=== PATIENT | female | born 1940 | race Caucasian/White ===

== ENCOUNTER 2018-05-29 09:37 | Observation (INO) | payer MEDICARE ==
[2018-05-29 10:42] LABS: BASO % 0.8 % (0.0-2.0); EOS # 0.2 K/uL (0.0-0.7); EOS % 3.4 % (0.0-4.0); HEMOGLOBIN 10.7 g/dL (11.0-16.0); LYMPH # 1.5 K/uL (1.0-4.3); LYMPH % 24.9 % (20.0-40.0); MEAN CELL VOLUME 88.2 fL (81.0-99.0); MEAN CORPUSCULAR HEMOGLOBIN 29.3 pg (27.0-31.0); MEAN CORPUSCULAR HGB CONC 33.2 g/dL (33.0-37.0); MEAN PLATELET VOLUME 8.5 fL (7.2-11.7); MONO # 0.6 K/uL (0.0-0.8); MONO % 10.3 % (0.0-10.0); NEUT # 3.6 K/uL (1.8-7.0); NEUT % 60.6 % (50.0-75.0); RBC 3.67 Mil/uL (3.80-5.20); RED CELL DISTRIBUTION WIDTH 14.1 % (11.5-14.5); WHITE BLOOD COUNT 5.9 K/uL (4.8-10.8)
--- NOTE | 2018-05-29 10:47 | C.PDOC ---
History Of Present Illness 77-year-old female presents to the emergency department with complaints of left sided chest pain that started at 02:00 this morning. Pain is described as pressure and is non-radiating; pain lasted approx lasted one hour, and improved by 03:00. Patient still feels some discomfort on her chest now. She denies nausea/vomiting, fever/chills, cough, SOB, abdominal pain, leg swelling, or any other associated symptoms. PMHx of HTN, hyperlipidemia, asthma Time Seen by Provider: 05/29/18 09:42 Chief Complaint (Nursing): Chest Pain History Per: Patient History/Exam Limitations: no limitations Onset/Duration Of Symptoms: Days Current Symptoms Are (Timing): Better Severity: Mild Quality: "Pain" Past Medical History Reviewed: Historical Data, Nursing Documentation, Vital Signs Vital Signs: Last Vital Signs Temp 98.5 F 05/29/18 15:55 Pulse 76 05/29/18 16:37 Resp 18 05/29/18 15:55 BP 135/72 05/29/18 15:55 Pulse Ox 98 05/29/18 16:37 - Medical History PMH: Asthma, HTN, Hypercholesterolemia Surgical History: Cholecystectomy Denies: Pacemaker - [facility] Procedures LAPAROSCOPIC CHOLECYSTECTOMY (10/08/14) TETANUS TOXOID ADMINIST (01/17/15) THORACENTESIS (10/08/14) Family History: States: No Known Family Hx - Social History Hx Tobacco Use: No Hx Alcohol Use: No Hx Substance Use: No - Immunization History Hx Tetanus Toxoid Vaccination: No Hx Influenza Vaccination: Yes Hx Pneumococcal Vaccination: No Review Of Systems Constitutional: Negative for: Fever, Chills Cardiovascular: Positive for: Chest Pain. Negative for: Palpitations, Light Headedness Respiratory: Negative for: Cough, Shortness of Breath, Pleuritic Pain Gastrointestinal: Negative for: Nausea, Vomiting, Abdominal Pain Musculoskeletal: Negative for: Arm Pain Neurological: Negative for: Weakness, Numbness, Headache, Dizziness Physical Exam - Physical Exam Appears: Well, Non-toxic, No Acute Distress, Other (speaking in full sentences) Skin: Normal Color, Warm, Dry, No Rash Eye(s): bilateral: Normal Inspection Oral Mucosa: Moist Neck: Normal, Normal ROM Cardiovascular: Rhythm Regular Respiratory: Normal Breath Sounds, No Rales, No Rhonchi, No Wheezing Gastrointestinal/Abdominal: Normal Exam, Bowel Sounds, Soft, No Tenderness Extremity: Pedal Edema (trace, pitting edema B/L LEs), No Calf Tenderness, No Deformity, No Swelling Pulses: Left Dorsalis Pedis: Normal, Right Dorsalis Pedis: Normal Neurological/Psych: Oriented x3 ED Course And Treatment - Laboratory Results Result Diagrams: 05/29/18 10:38 05/29/18 10:38 ECG: Interpreted By Me, Viewed By Me ECG Rhythm: Sinus Rhythm ECG Interpretation: Normal Interpretation Of ECG: Normal axis. No acute ST/T wave changes Rate From EC (bpm) O2 Sat by Pulse Oximetry: 98 (RA) Pulse Ox Interpretation: Normal - Radiology CXR: Interpreted by Me, Viewed By Me CXR Interpretation: Yes: No Acute Disease. No: Infiltrates Progress Note: EKG, Bloodwork and Chest X-Ray ordered and reviewed. Patient reports ASA allergy - PO Plavix given. - Physician Consult Information Physician Contacted: Shantel Garcia Outcome Of Conversation: Discussed patient with hospitalist, agrees with obs telemetry for chest pain r/o ACS. Disposition - Disposition Disposition: HOSPITALIZED Disposition Time: 11:38 Condition: STABLE - Clinical Impression Clinical Impression: Chest pain - Scribe Statement The provider has reviewed the documentation as recorded by the Scribe (Aruna Gardiner) Provider Attestation: All medical record entries made by the Scribe were at my direction and personally dictated by me. I have reviewed the chart and agree that the record accurately reflects my personal performance of the history, physical exam, medical decision making, and the department course for this patient. I have also personally directed, reviewed, and agree with the discharge instructions and disposition. Decision To Admit - Pt Status Changed To: Hospital Disposition Of: Observation - . Bed Request Type: Telemetry Admitting Physician: Shantel Garcia Patient Diagnosis: Chest pain
[2018-05-29 10:53] LABS: PROTHROMBIN TIME 11.1 SECONDS (9.7-12.2)
[2018-05-29 10:57] LABS: GFR AFRICAN-AMERICAN > 60; GFR NON-AFRICAN AMERICAN > 60
[2018-05-29 10:58] LABS: CALCIUM 8.4 mg/dl (8.6-10.4)
[2018-05-29 10:59] LABS: ALB/GLOB RATIO 1.1 (1.0-2.1); ALBUMIN 3.8 g/dL (3.5-5.0); ALT/SGPT 29 U/L (9-52); AST/SGOT 37 U/L (14-36); BLOOD UREA NITROGEN 19 mg/dL (7-17)
[2018-05-29 11:10] LABS: CK-MB 0.87 ng/mL (0.0-3.38)
--- NOTE | 2018-05-29 12:31 | CP.PCM.HP ---
History of Present Illness - History of Present Illness History of Present Illness: CC: chest pain Patient is a 77F with PMHx of HTN, HLD, and sciatica who presents for chest pain. Patient woke up at 2am with strong chest pain on the left side which lasted for 1 hour. Patient to a Meloxicam 7.5 mg which she said helped and she was able to fall back asleep. Patient has no pain today. Patient did not want to come to the ER, but her daughter convinced her to. Patient took the bus here and walked and said she had no pain with walking or shortness of breath. Patient denies palpitation. Patient denies abdominal pain, nausea, vomiting, constipation, or diarrhea. PMD: Dr. Stone Allergies: NKDA PMHx: HTN, HLD, Sciatica Psurg: cholecystectomy 2014, L knee surgery 2011, c - section Famhx: none, no history of CAD or OK Social: denies tobacco, alcohol, drugs Present on Admission - Present on Admission Any Indicators Present on Admission: No History of DVT/PE: No History of Uncontrolled Diabetes: No Urinary Catheter: No Decubitus Ulcer Present: No Review of Systems - Constitutional Constitutional: absent: Anorexia, Chills - EENT Eyes: absent: Blurred Vision, Change in Vision Nose/Mouth/Throat: absent: Nasal Congestion - Cardiovascular Cardiovascular: Chest Pain. absent: Dyspnea - Respiratory Respiratory: absent: Cough, Dyspnea, Wheezing - Gastrointestinal Gastrointestinal: absent: Abdominal Pain, Constipation, Diarrhea, Heartburn, Nausea, Vomiting - Genitourinary Genitourinary: absent: Dysuria, Hematuria - Musculoskeletal Musculoskeletal: absent: Numbness, Tingling - Integumentary Integumentary: absent: Rash Past Patient History - Infectious Disease Hx of Infectious Diseases: None - Past Medical History & Family History Past Medical History?: Yes - Past Social History Smoking Status: Never Smoked - CARDIAC Hx Hypercholesterolemia: Yes Hx Hypertension: Yes Hx Pacemaker: No - PULMONARY Hx Asthma: Yes - NEUROLOGICAL Hx Dementia: No Hx Parkinson's Disease: No Hx Seizures: No Hx Transient Ischemic Attacks (TIA): No - HEENT Hx HEENT Problems: No Hx Blind: No - RENAL Hx Chronic Kidney Disease: No - ENDOCRINE/METABOLIC Hx Endocrine Disorders: No - HEMATOLOGICAL/ONCOLOGICAL Hx Blood Disorders: No - INTEGUMENTARY Hx Dermatological Problems: No - MUSCULOSKELETAL/RHEUMATOLOGICAL Hx Musculoskeletal Disorders: No Hx Falls: Yes (due to knee surgery 5 yrs ago) - GASTROINTESTINAL Hx Gastrointestinal Disorders: Yes Hx Bowel Surgery: No Hx Ulcer: Yes Other/Comment: nausea and vomitting and abdominal pain - GENITOURINARY/GYNECOLOGICAL Hx Genitourinary Disorders: No - PSYCHIATRIC Hx Substance Use: No - SURGICAL HISTORY Hx Cholecystectomy: Yes - ANESTHESIA Hx Anesthesia: Yes Hx Anesthesia Reactions: No Meds Allergies/Adverse Reactions: Allergies Allergy/AdvReac Type Severity Reaction Status Date / Time No Known Allergies Allergy Verified 05/29/18 13:18 Physical Exam - Constitutional Appears: Non-toxic, No Acute Distress - Head Exam Head Exam: ATRAUMATIC, NORMAL INSPECTION, NORMOCEPHALIC - Eye Exam Eye Exam: EOMI, Normal appearance - ENT Exam ENT Exam: Mucous Membranes Moist - Respiratory Exam Respiratory Exam: Clear to Auscultation Bilateral, NORMAL BREATHING PATTERN. absent: Rales, Rhonchi, Wheezes, Respiratory Distress, Stridor - Cardiovascular Exam Cardiovascular Exam: REGULAR RHYTHM, RRR, +S1, +S2 - GI/Abdominal Exam GI & Abdominal Exam: Normal Bowel Sounds, Soft. absent: Distended, Firm, Tenderness - Extremities Exam Extremities exam: Positive for: normal inspection. Negative for: tenderness - Back Exam Back exam: NORMAL INSPECTION - Neurological Exam Neurological exam: Alert, Oriented x3 - Psychiatric Exam Psychiatric exam: Normal Affect, Normal Mood - Skin Skin Exam: Intact, Normal Color, Warm Results - Vital Signs Recent Vital Signs: Last Vital Signs Temp 98.9 F 05/29/18 09:54 Pulse 68 05/29/18 12:27 Resp 14 05/29/18 12:27 BP 149/77 05/29/18 12:27 Pulse Ox 98 05/29/18 12:27 - Labs Result Diagrams: 05/29/18 10:38 05/29/18 10:38 Labs: Laboratory Results - last 24 hr 05/29/18 05/29/18 05/29/18 10:38 10:38 10:38 WBC 5.9 RBC 3.67 L Hgb 10.7 L Hct 32.4 L MCV 88.2 D MCH 29.3 MCHC 33.2 RDW 14.1 Plt Count 189 MPV 8.5 Neut % (Auto) 60.6 Lymph % (Auto) 24.9 [place] % (Auto) 10.3 H Eos % (Auto) 3.4 Baso % (Auto) 0.8 Neut # (Auto) 3.6 Lymph # (Auto) 1.5 [place] # (Auto) 0.6 Eos # (Auto) 0.2 Baso # (Auto) 0.0 PT 11.1 INR 1.0 APTT 33 Sodium 142 Potassium 4.6 Chloride 106 Carbon Dioxide 27 Anion Gap 13 BUN 19 H Creatinine 0.7 Est GFR ( Amer) > 60 Est GFR (Non-Af Amer) > 60 POC Glucose (mg/dL) Random Glucose 91 Calcium 8.4 L Total Bilirubin 0.7 AST 37 H ALT 29 Alkaline Phosphatase 51 Total Creatine Kinase 183 H CK-MB (Mass) 0.87 Troponin I < 0.0120 Total Protein 7.3 Albumin 3.8 Globulin 3.5 Albumin/Globulin Ratio 1.1 05/29/18 11:24 WBC RBC Hgb Hct MCV MCH MCHC RDW Plt Count MPV Neut % (Auto) Lymph % (Auto) [place] % (Auto) Eos % (Auto) Baso % (Auto) Neut # (Auto) Lymph # (Auto) [place] # (Auto) Eos # (Auto) Baso # (Auto) PT INR APTT Sodium Potassium Chloride Carbon Dioxide Anion Gap BUN Creatinine Est GFR ( Amer) Est GFR (Non-Af Amer) POC Glucose (mg/dL) 72 Random Glucose Calcium Total Bilirubin AST ALT Alkaline Phosphatase Total Creatine Kinase CK-MB (Mass) Troponin I Total Protein Albumin Globulin Albumin/Globulin Ratio Assessment & Plan - Assessment and Plan (Free Text) Assessment: Chest pain r/o ACS Troponin I negative, EKG NSR f/u ROMIs x 2 with ekgs x 2 Plavix given in ER because was thought that patient is allergic to Aspirin which she is not Dr. Canales consulted, help appreciated ASA 81mg po daily HTN Losartan 100 mg po daily HCTZ 12.5 mg po daily f/u HgA1c, TSH, free T4 HLD Crestor 5mg po HS f/u lipid panel Prophylaxis SCDs Heparin 5000u sc q8h Heart healthy diet
--- NOTE | 2018-05-29 13:19 | RAD ---
PROCEDURE: CHEST RADIOGRAPH, 1 VIEW HISTORY: CP COMPARISON: Comparison chest dated 10/18/2016 FINDINGS: LUNGS: Bibasilar atelectasis right greater than left. Small calcified granuloma left lung apex again noted. PLEURA: No pneumothorax or pleural fluid seen. CARDIOVASCULAR: Normal. OSSEOUS STRUCTURES: No significant abnormalities. VISUALIZED UPPER ABDOMEN: Normal. OTHER FINDINGS: None. IMPRESSION: Bibasilar atelectasis right greater than left. Small calcified granuloma left lung apex again noted.
[2018-05-29 16:36] VITALS: O2SAT 98
[2018-05-29 16:36] LABS: CK-MB 0.83 ng/mL (0.0-3.38)
[2018-05-29 22:44] LABS: CK-MB 0.83 ng/mL (0.0-3.38)
--- NOTE | 2018-05-29 23:51 | CP.PCM.CON ---
Past Patient History - Infectious Disease Hx of Infectious Diseases: None - Past Medical History & Family History Past Medical History?: Yes - Past Social History Smoking Status: Never Smoked - CARDIAC Hx Hypercholesterolemia: Yes Hx Hypertension: Yes Hx Pacemaker: No - PULMONARY Hx Asthma: Yes - NEUROLOGICAL Hx Dementia: No Hx Parkinson's Disease: No Hx Seizures: No Hx Transient Ischemic Attacks (TIA): No - HEENT Hx HEENT Problems: No Hx Blind: No - RENAL Hx Chronic Kidney Disease: No - ENDOCRINE/METABOLIC Hx Endocrine Disorders: No - HEMATOLOGICAL/ONCOLOGICAL Hx Blood Disorders: No - INTEGUMENTARY Hx Dermatological Problems: No - MUSCULOSKELETAL/RHEUMATOLOGICAL Hx Musculoskeletal Disorders: No Hx Falls: Yes (due to knee surgery 5 yrs ago) - GASTROINTESTINAL Hx Gastrointestinal Disorders: Yes Hx Bowel Surgery: No Hx Ulcer: Yes Other/Comment: nausea and vomitting and abdominal pain - GENITOURINARY/GYNECOLOGICAL Hx Genitourinary Disorders: No - PSYCHIATRIC Hx Substance Use: No - SURGICAL HISTORY Hx Cholecystectomy: Yes - ANESTHESIA Hx Anesthesia: Yes Hx Anesthesia Reactions: No Meds Allergies/Adverse Reactions: Allergies Allergy/AdvReac Type Severity Reaction Status Date / Time No Known Allergies Allergy Verified 05/29/18 13:18 - Medications Medications: Current Medications Aspirin (Aspirin Chewable) 81 mg PO DAILY [facility] Heparin Sodium (Porcine) (Heparin) 5,000 units SC Q8 [facility] Last Admin: 05/29/18 21:52 Dose: 5,000 units Hydrochlorothiazide (Microzide) 12.5 mg PO DAILY [facility] Losartan Potassium (Cozaar) 100 mg PO DAILY [facility] Rosuvastatin Calcium (Crestor) 5 mg PO HS [facility] Last Admin: 05/29/18 21:52 Dose: 5 mg Results - Vital Signs Recent Vital Signs: Last Vital Signs Temp 98.5 F 05/29/18 15:55 Pulse 76 05/29/18 20:05 Resp 18 05/29/18 15:55 BP 135/72 05/29/18 15:55 Pulse Ox 98 05/29/18 20:05 - Labs Result Diagrams: 05/29/18 10:38 05/29/18 10:38 Labs: Laboratory Results - last 24 hr 05/29/18 05/29/18 05/29/18 10:38 10:38 10:38 WBC 5.9 RBC 3.67 L Hgb 10.7 L Hct 32.4 L MCV 88.2 D MCH 29.3 MCHC 33.2 RDW 14.1 Plt Count 189 MPV 8.5 Neut % (Auto) 60.6 Lymph % (Auto) 24.9 [place] % (Auto) 10.3 H Eos % (Auto) 3.4 Baso % (Auto) 0.8 Neut # (Auto) 3.6 Lymph # (Auto) 1.5 [place] # (Auto) 0.6 Eos # (Auto) 0.2 Baso # (Auto) 0.0 PT 11.1 INR 1.0 APTT 33 Sodium 142 Potassium 4.6 Chloride 106 Carbon Dioxide 27 Anion Gap 13 BUN 19 H Creatinine 0.7 Est GFR ( Amer) > 60 Est GFR (Non-Af Amer) > 60 POC Glucose (mg/dL) Random Glucose 91 Calcium 8.4 L Phosphorus 2.5 Total Bilirubin 0.7 AST 37 H ALT 29 Alkaline Phosphatase 51 Total Creatine Kinase 183 H CK-MB (Mass) 0.87 Troponin I < 0.0120 Total Protein 7.3 Albumin 3.8 Globulin 3.5 Albumin/Globulin Ratio 1.1 05/29/18 05/29/18 05/29/18 11:24 15:54 22:11 WBC RBC Hgb Hct MCV MCH MCHC RDW Plt Count MPV Neut % (Auto) Lymph % (Auto) [place] % (Auto) Eos % (Auto) Baso % (Auto) Neut # (Auto) Lymph # (Auto) [place] # (Auto) Eos # (Auto) Baso # (Auto) PT INR APTT Sodium Potassium Chloride Carbon Dioxide Anion Gap BUN Creatinine Est GFR ( Amer) Est GFR (Non-Af Amer) POC Glucose (mg/dL) 72 Random Glucose Calcium Phosphorus Total Bilirubin AST ALT Alkaline Phosphatase Total Creatine Kinase 157 H 162 H CK-MB (Mass) 0.83 0.83 Troponin I < 0.0120 < 0.0120 Total Protein Albumin Globulin Albumin/Globulin Ratio
[2018-05-30 01:31] VITALS: RESP 20
[2018-05-30 05:06] VITALS: BP 113/71; PULSE 70; TEMP 98
[2018-05-30 08:27] LABS: BASO % 0.4 % (0.0-2.0); EOS # 0.2 K/uL (0.0-0.7); EOS % 3.9 % (0.0-4.0); HEMOGLOBIN 10.5 g/dL (11.0-16.0); LYMPH # 1.4 K/uL (1.0-4.3); LYMPH % 24.3 % (20.0-40.0); MEAN CELL VOLUME 88.7 fL (81.0-99.0); MEAN CORPUSCULAR HEMOGLOBIN 29.9 pg (27.0-31.0); MEAN CORPUSCULAR HGB CONC 33.7 g/dL (33.0-37.0); MEAN PLATELET VOLUME 9.1 fL (7.2-11.7); MONO # 0.5 K/uL (0.0-0.8); MONO % 9.1 % (0.0-10.0); NEUT # 3.5 K/uL (1.8-7.0); NEUT % 62.3 % (50.0-75.0); RBC 3.5 Mil/uL (3.80-5.20); RED CELL DISTRIBUTION WIDTH 13.9 % (11.5-14.5); WHITE BLOOD COUNT 5.7 K/uL (4.8-10.8)
[2018-05-30 08:42] LABS: ALB/GLOB RATIO 1.2 (1.0-2.1); ALBUMIN 3.5 g/dL (3.5-5.0); ALT/SGPT 25 U/L (9-52); AST/SGOT 23 U/L (14-36); BLOOD UREA NITROGEN 17 mg/dL (7-17); CALCIUM 8.7 mg/dl (8.6-10.4); GFR AFRICAN-AMERICAN > 60; GFR NON-AFRICAN AMERICAN > 60; HDL CHOLESTEROL 49 mg/dL (30-70)
[2018-05-30 08:52] LABS: LDL CHOLESTEROL 83 mg/dL (0-129)
--- NOTE | 2018-05-30 15:21 | CP.PCM.DIS ---
<Nelda Varela - Last Filed: 05/30/18 15:17> Provider - Provider Date of Admission: 05/29/18 11:38 Attending physician: Shantel Garcia MD Primary care physician: Dr. Stone Time Spent in preparation of Discharge (in minutes): 35 Diagnosis - Discharge Diagnosis (1) Chest pain Status: Resolved Hospital Course - Lab Results Lab Results: Most Recent Lab Values WBC 5.7 K/uL (4.8-10.8) 05/30/18 07:50 RBC 3.50 Mil/uL (3.80-5.20) L 05/30/18 07:50 Hgb 10.5 g/dL (11.0-16.0) L 05/30/18 07:50 Hct 31.1 % (34.0-47.0) L 05/30/18 07:50 MCV 88.7 fL (81.0-99.0) 05/30/18 07:50 MCH 29.9 pg (27.0-31.0) 05/30/18 07:50 MCHC 33.7 g/dL (33.0-37.0) 05/30/18 07:50 RDW 13.9 % (11.5-14.5) 05/30/18 07:50 Plt Count 196 K/uL (130-400) 05/30/18 07:50 MPV 9.1 fL (7.2-11.7) 05/30/18 07:50 Neut % (Auto) 62.3 % (50.0-75.0) 05/30/18 07:50 Lymph % (Auto) 24.3 % (20.0-40.0) 05/30/18 07:50 [place] % (Auto) 9.1 % (0.0-10.0) 05/30/18 07:50 Eos % (Auto) 3.9 % (0.0-4.0) 05/30/18 07:50 Baso % (Auto) 0.4 % (0.0-2.0) 05/30/18 07:50 Neut # (Auto) 3.5 K/uL (1.8-7.0) 05/30/18 07:50 Lymph # (Auto) 1.4 K/uL (1.0-4.3) 05/30/18 07:50 [place] # (Auto) 0.5 K/uL (0.0-0.8) 05/30/18 07:50 Eos # (Auto) 0.2 K/uL (0.0-0.7) 05/30/18 07:50 Baso # (Auto) 0.0 K/uL (0.0-0.2) 05/30/18 07:50 PT 11.1 SECONDS (9.7-12.2) 05/29/18 10:38 INR 1.0 05/29/18 10:38 APTT 33 SECONDS (21-34) 05/29/18 10:38 Sodium 144 mmol/L (132-148) 05/30/18 07:50 Potassium 3.8 mmol/L (3.6-5.2) 05/30/18 07:50 Chloride 106 mmol/L (98-107) 05/30/18 07:50 Carbon Dioxide 30 mmol/L (22-30) 05/30/18 07:50 Anion Gap 13 (10-20) 05/30/18 07:50 BUN 17 mg/dL (7-17) 05/30/18 07:50 Creatinine 0.7 mg/dL (0.7-1.2) 05/30/18 07:50 Est GFR ( Amer) > 60 05/30/18 07:50 Est GFR (Non-Af Amer) > 60 05/30/18 07:50 POC Glucose (mg/dL) 72 mg/dL (65-110) 05/29/18 11:24 Random Glucose 97 mg/dL (65-105) 05/30/18 07:50 Hemoglobin A1c 5.7 % (4.2-6.5) 05/30/18 07:50 Calcium 8.7 mg/dl (8.6-10.4) 05/30/18 07:50 Phosphorus 2.5 mg/dL (2.5-4.5) 05/29/18 10:38 Magnesium 1.9 mg/dL (1.6-2.3) 05/30/18 07:50 Total Bilirubin 0.6 mg/dL (0.2-1.3) 05/30/18 07:50 AST 23 U/L (14-36) 05/30/18 07:50 ALT 25 U/L (9-52) 05/30/18 07:50 Alkaline Phosphatase 59 U/L (38-126) 05/30/18 07:50 Total Creatine Kinase 162 U/L (30-135) H 05/29/18 22:11 CK-MB (Mass) 0.83 ng/mL (0.0-3.38) 05/29/18 22:11 Troponin I < 0.0120 ng/mL (0.00-0.120) 05/29/18 22:11 Total Protein 6.6 g/dL (6.3-8.3) 05/30/18 07:50 Albumin 3.5 g/dL (3.5-5.0) 05/30/18 07:50 Globulin 3.1 gm/dL (2.2-3.9) 05/30/18 07:50 Albumin/Globulin Ratio 1.2 (1.0-2.1) 05/30/18 07:50 Triglycerides 58 mg/dL (0-149) 05/30/18 07:50 Cholesterol 162 mg/dL (0-199) 05/30/18 07:50 LDL Cholesterol Direct 83 mg/dL (0-129) 05/30/18 07:50 HDL Cholesterol 49 mg/dL (30-70) 05/30/18 07:50 Free T4 1.32 ng/dL (0.78-2.19) 05/30/18 07:50 TSH 3rd Generation 2.77 mIU/L (0.46-4.68) 05/30/18 07:50 - Hospital Course Hospital Course: "Patient is a 77F with PMHx of HTN, HLD, and sciatica who presents for chest pain. Patient woke up at 2am with strong chest pain on the left side which lasted for 1 hour. Patient to a Meloxicam 7.5 mg which she said helped and she was able to fall back asleep. Patient has no pain today. Patient did not want to come to the ER, but her daughter convinced her to. Patient took the bus here and walked and said she had no pain with walking or shortness of breath. Patient denies palpitation. Patient denies abdominal pain, nausea, vomiting, constipation, or diarrhea." Patient admitted to telemetry for chest pain to rule out ACS. Patient had Troponins drawn three time with ekgs every 6 hours. Troponins were negative x 3. EKGs were NSR with no changes. Lipid panel showed: Triglycerides 58, Cholesterol 162, LDL 83, HDL 49. TSH was 2.77 and free T4 was 1.32. HgA1C was 5.7. Patient did not have any further episodes of chest while in the hospital. Patient's blood pressure was well controlled with her home antihypertensives. Patient will follow up with her primary doctor, Dr. Stone. Patient will continue taking her home medications and start taking ASA 81mg daily. Upon discharge, patient had no complaints and was feeling well. This is a summary of the patient's hospital course, please see chart for full details. Discharge Exam - Additional Findings Additional findings: - Constitutional Appears: Non-toxic, No Acute Distress - Head Exam Head Exam: ATRAUMATIC, NORMAL INSPECTION, NORMOCEPHALIC - Eye Exam Eye Exam: EOMI, Normal appearance - ENT Exam ENT Exam: Mucous Membranes Moist - Respiratory Exam Respiratory Exam: Clear to Auscultation Bilateral, NORMAL BREATHING PATTERN. absent: Rales, Rhonchi, Wheezes, Respiratory Distress, Stridor - Cardiovascular Exam Cardiovascular Exam: REGULAR RHYTHM, RRR, +S1, +S2 - GI/Abdominal Exam GI & Abdominal Exam: Normal Bowel Sounds, Soft. absent: Distended, Firm, Tenderness - Extremities Exam Extremities exam: Positive for: normal inspection. Negative for: tenderness - Back Exam Back exam: NORMAL INSPECTION - Neurological Exam Neurological exam: Alert, Oriented x3 - Psychiatric Exam Psychiatric exam: Normal Affect, Normal Mood - Skin Skin Exam: Intact, Normal Color, Warm Discharge Plan - Follow Up Plan Condition: STABLE Disposition: HOME/ ROUTINE Instructions: Chest Pain (DC) Additional Instructions: Patient stable for discharge. Patient to continue home medications. Patient to start taking Aspirin 81 mg daily. Patient to follow up with her primary doctor, Dr. Stone within 7-10 days. Patient to return to Emergency Room if chest pain returns. Patient explained instructions who understands and agrees. Referrals: Ellie Staley MD [Medical Doctor] - <Abe Garcia - Last Filed: 05/30/18 15:48> Provider - Provider Date of Admission: 05/29/18 11:38 Attending physician: Shantel Garcia MD Hospital Course - Lab Results Lab Results: Most Recent Lab Values WBC 5.7 K/uL (4.8-10.8) 05/30/18 07:50 RBC 3.50 Mil/uL (3.80-5.20) L 05/30/18 07:50 Hgb 10.5 g/dL (11.0-16.0) L 05/30/18 07:50 Hct 31.1 % (34.0-47.0) L 05/30/18 07:50 MCV 88.7 fL (81.0-99.0) 05/30/18 07:50 MCH 29.9 pg (27.0-31.0) 05/30/18 07:50 MCHC 33.7 g/dL (33.0-37.0) 05/30/18 07:50 RDW 13.9 % (11.5-14.5) 05/30/18 07:50 Plt Count 196 K/uL (130-400) 05/30/18 07:50 MPV 9.1 fL (7.2-11.7) 05/30/18 07:50 Neut % (Auto) 62.3 % (50.0-75.0) 05/30/18 07:50 Lymph % (Auto) 24.3 % (20.0-40.0) 05/30/18 07:50 [place] % (Auto) 9.1 % (0.0-10.0) 05/30/18 07:50 Eos % (Auto) 3.9 % (0.0-4.0) 05/30/18 07:50 Baso % (Auto) 0.4 % (0.0-2.0) 05/30/18 07:50 Neut # (Auto) 3.5 K/uL (1.8-7.0) 05/30/18 07:50 Lymph # (Auto) 1.4 K/uL (1.0-4.3) 05/30/18 07:50 [place] # (Auto) 0.5 K/uL (0.0-0.8) 05/30/18 07:50 Eos # (Auto) 0.2 K/uL (0.0-0.7) 05/30/18 07:50 Baso # (Auto) 0.0 K/uL (0.0-0.2) 05/30/18 07:50 PT 11.1 SECONDS (9.7-12.2) 05/29/18 10:38 INR 1.0 05/29/18 10:38 APTT 33 SECONDS (21-34) 05/29/18 10:38 Sodium 144 mmol/L (132-148) 05/30/18 07:50 Potassium 3.8 mmol/L (3.6-5.2) 05/30/18 07:50 Chloride 106 mmol/L (98-107) 05/30/18 07:50 Carbon Dioxide 30 mmol/L (22-30) 05/30/18 07:50 Anion Gap 13 (10-20) 05/30/18 07:50 BUN 17 mg/dL (7-17) 05/30/18 07:50 Creatinine 0.7 mg/dL (0.7-1.2) 05/30/18 07:50 Est GFR ( Amer) > 60 05/30/18 07:50 Est GFR (Non-Af Amer) > 60 05/30/18 07:50 POC Glucose (mg/dL) 72 mg/dL (65-110) 05/29/18 11:24 Random Glucose 97 mg/dL (65-105) 05/30/18 07:50 Hemoglobin A1c 5.7 % (4.2-6.5) 05/30/18 07:50 Calcium 8.7 mg/dl (8.6-10.4) 05/30/18 07:50 Phosphorus 2.5 mg/dL (2.5-4.5) 05/29/18 10:38 Magnesium 1.9 mg/dL (1.6-2.3) 05/30/18 07:50 Total Bilirubin 0.6 mg/dL (0.2-1.3) 05/30/18 07:50 AST 23 U/L (14-36) 05/30/18 07:50 ALT 25 U/L (9-52) 05/30/18 07:50 Alkaline Phosphatase 59 U/L (38-126) 05/30/18 07:50 Total Creatine Kinase 162 U/L (30-135) H 05/29/18 22:11 CK-MB (Mass) 0.83 ng/mL (0.0-3.38) 05/29/18 22:11 Troponin I < 0.0120 ng/mL (0.00-0.120) 05/29/18 22:11 Total Protein 6.6 g/dL (6.3-8.3) 05/30/18 07:50 Albumin 3.5 g/dL (3.5-5.0) 05/30/18 07:50 Globulin 3.1 gm/dL (2.2-3.9) 05/30/18 07:50 Albumin/Globulin Ratio 1.2 (1.0-2.1) 05/30/18 07:50 Triglycerides 58 mg/dL (0-149) 05/30/18 07:50 Cholesterol 162 mg/dL (0-199) 05/30/18 07:50 LDL Cholesterol Direct 83 mg/dL (0-129) 05/30/18 07:50 HDL Cholesterol 49 mg/dL (30-70) 05/30/18 07:50 Free T4 1.32 ng/dL (0.78-2.19) 05/30/18 07:50 TSH 3rd Generation 2.77 mIU/L (0.46-4.68) 05/30/18 07:50 Attending/Attestation - Attestation I have personally seen and examined this patient.: Yes I have fully participated in the care of the patient.: Yes I have reviewed all pertinent clinical information, including history, physical exam and plan: Yes Notes (Text): 05/30/18 15:44 Medical attending: Patient was seen and examined by me. Agree with the above note by the resident Patient's family member her at bedside, patient was ok with this The patient was not in any acute distress when we saw her. She reported no chest pain, no palpitations, no abdominal pain, and no headahce. She was walking fine in the room and also on exam we had her walk with us in the hallway. She did well when walking and did not need assistance The EKG appeared stable, the cardiac enzymes were also negative x 3. Reviewed lab work which showed stable CBC and CMP She really wanted to go home as soon as possible thank you Abe Garcia
--- NOTE | 2018-05-31 23:20 | CARD ---
APPROVED REPORT EKG Measurement Heart [id number] [place] [id number] <Conclusion> Normal sinus rhythm Normal ECG
--- NOTE | 2018-05-31 23:33 | CARD ---
APPROVED REPORT EKG Measurement Heart [id number] [place] [id number] <Conclusion> Normal sinus rhythm Normal ECG
== END 2018-05-30 12:20 | disposition home or self-care (01) ==
LOC: C.ER 09:37 → C.9E 11:38 → C.6T 15:23
PROVIDERS: ADMIT Internal Medicine; ATTEND Internal Medicine
DX: R07.9 Chest pain, unspecified (principal); I10 Essential (primary) hypertension; E78.5 Hyperlipidemia, unspecified; M54.30 Sciatica, unspecified side; J45.909 Unspecified asthma, uncomplicated; Z79.82 Long term (current) use of aspirin; Z79.899 Other long term (current) drug therapy; Z88.6 Allergy status to analgesic agent; Z90.49 Acquired absence of other specified parts of digestive tract
CPT/HCPCS: 36415; 71045; 80053; 80061; 82550; 82553; 82948; 83036; 83735; 84100; 84439; 84443; 84484; 85025; 85610; 85730; 93005; 96372; 99285; G0378; J1644

== ENCOUNTER 2018-08-12 08:31 | Emergency (ER) | payer MEDICARE ==
[2018-08-12 08:42] VITALS: RESP 16
--- NOTE | 2018-08-12 09:13 | C.PDOC ---
History Of Present Illness 77 yo female, hx of htn, presents with right upper back pain x 3 days. no trauma. mild cough. no fevers, no other complaints. Time Seen by Provider: 08/12/18 08:34 Chief Complaint (Nursing): Back Pain Past Medical History Reviewed: Historical Data, Nursing Documentation, Vital Signs Vital Signs: Last Vital Signs Temp 97.9 F 08/12/18 13:48 Pulse 73 08/12/18 13:48 Resp 16 08/12/18 13:48 BP 146/76 08/12/18 13:48 Pulse Ox 99 08/12/18 13:48 - Medical History PMH: Asthma, HTN, Hypercholesterolemia Denies: Alzheimer's Disease, Atrial Fibrillation, Bronchitis, Cardia Arrhythmia, CHF, COPD, Dementia, Emphysema, Migraine, Mitral Valve Prolapse, Multiple Sclerosis, Parkinson's Disease, Peripheral Edema, Pneumonia, Pulmonary Embolism, Chronic Kidney Disease, Seizures, Sleep Apnea, TIA Surgical History: Cholecystectomy Denies: Pacemaker - [facility] Procedures LAPAROSCOPIC CHOLECYSTECTOMY (10/08/14) TETANUS TOXOID ADMINIST (01/17/15) THORACENTESIS (10/08/14) Family History: States: Unknown Family Hx - Social History Hx Tobacco Use: No Hx Alcohol Use: No Hx Substance Use: No - Immunization History Hx Tetanus Toxoid Vaccination: No Hx Influenza Vaccination: Yes Hx Pneumococcal Vaccination: No Review Of Systems Except As Marked, All Systems Reviewed And Found Negative. Respiratory: Positive for: Cough Physical Exam - Physical Exam Appears: Well, No Acute Distress Skin: Normal Color, Warm, Dry Eye(s): bilateral: Normal Inspection, PERRL, EOMI Nose: Normal Throat: Normal Neck: Normal Cardiovascular: Rhythm Regular Respiratory: Normal Breath Sounds Gastrointestinal/Abdominal: Normal Exam, Soft, No Tenderness, No Guarding, No Rebound Back: Normal Inspection, Paraspinal Tenderness (rigth upper back) Extremity: Normal ROM ED Course And Treatment - Laboratory Results Result Diagrams: 08/12/18 10:38 08/12/18 10:38 O2 Sat by Pulse Oximetry: 97 Medical Decision Making Medical Decision Making: MSK PAIN VS pleural effusion/pna/pe. labs imaging pendign labs elevated dimer, cta ?infiltrate. curb 65 neg. will tx empriically advise outpt fu Disposition - Disposition Referrals: [facility] [Outside] [facility] [Outside] Disposition: HOME/ ROUTINE Disposition Time: 02:00 Condition: STABLE Additional Instructions: please follow up with your doctor/clinic. return to er with worsening symptoms or concerns. Prescriptions: levoFLOXacin [Levaquin] 750 mg PO DAILY #10 tab Naproxen [Naprosyn] 500 mg PO BID PRN #14 tab PRN Reason: Pain, Mild (1-3) Instructions: Upper Back Pain (DC), Cough, Adult (DC) Forms: [employer] (Albanian) Print Language: SUDANESE - Clinical Impression Clinical Impression: Back pain
[2018-08-12 10:41] LABS: BASO % 0.5 % (0.0-2.0); EOS % 2.8 % (0.0-4.0); HEMOGLOBIN 11.2 g/dL (11.0-16.0); LYMPH % 20.9 % (20.0-40.0); MEAN CELL VOLUME 88.1 fL (81.0-99.0); MEAN CORPUSCULAR HGB CONC 34.1 g/dL (33.0-37.0); MEAN PLATELET VOLUME 8.1 fL (7.2-11.7); MONO % 6.6 % (0.0-10.0); NEUT % 69.2 % (50.0-75.0); RBC 3.73 Mil/uL (3.80-5.20); RED CELL DISTRIBUTION WIDTH 15.3 % (11.5-14.5); WHITE BLOOD COUNT 6.9 K/uL (4.8-10.8)
[2018-08-12 10:42] LABS: EOS # 0.2 K/uL (0.0-0.7); LYMPH # 1.4 K/uL (1.0-4.3); MONO # 0.5 K/uL (0.0-0.8); NEUT # 4.7 K/uL (1.8-7.0)
[2018-08-12 10:47] LABS: SQUAMOUS EPITHIAL 1 /hpf (0-5); URINE BILIRUBIN NEGATIVE (NEGATIVE); URINE BLOOD 1+ (NEGATIVE); URINE CLARITY Clear (Clear); URINE COLOR Yellow (YELLOW); URINE GLUCOSE (UA) NORMAL (Normal); URINE LEUKOCYTE ESTERASE TRACE Leu/uL (Negative); URINE PROTEIN NEGATIVE (NEGATIVE); URINE UROBILINOGEN NORMAL mg/dL (0.2-1.0)
[2018-08-12 10:55] LABS: ALB/GLOB RATIO 1.1 (1.0-2.1); ALT/SGPT 24 U/L (9-52); AST/SGOT 21 U/L (14-36); BLOOD UREA NITROGEN 20 mg/dL (7-17); CALCIUM 9.1 mg/dl (8.6-10.4); GFR NON-AFRICAN AMERICAN > 60
[2018-08-12 11:01] LABS: PROTHROMBIN TIME 10.6 SECONDS (9.7-12.2)
--- NOTE | 2018-08-12 11:22 | RAD ---
Date of service: 08/12/2018 HISTORY: cough COMPARISON: 05/29/2018 TECHNIQUE: Chest PA and lateral FINDINGS: LUNGS: No interval pathology noted. Tiny bilateral pulmonary granulomas suggested. PLEURA: No significant pleural effusion identified. No pneumothorax apparent. CARDIOVASCULAR: Normal heart size. The tortuous thoracic aorta is stable appearing OSSEOUS STRUCTURES: No significant abnormalities. VISUALIZED UPPER ABDOMEN: Mammillated right hemidiaphragm is stable appearing OTHER FINDINGS: None. IMPRESSION: No interval pathology appreciated. No pulmonary infiltrate
[2018-08-12] MEDS ORDERED: Iodixanol 320 MG/ML 100 ML BOTTLE IV ONE (11:58)
--- NOTE | 2018-08-12 13:35 | CT ---
Date of service: 08/12/18 CTA chest PE protocol Indication: right sided pleuritic pain, elevated dimer Technique: Contiguous axial images were obtained through the chest with intravenous contrast enhancement. Sagittal and coronal reconstructions were generated and reviewed. This CT exam was performed using 1 or more of the following dose reduction techniques: Automated exposure control, adjustment of the MAA and/or kV according to patient size, and/or use of iterative reconstruction technique. IV Contrast: 100 mL Visipaque IV Radiation dose (DLP): 354.90 MGy-cm. Comparison: Chest x-ray performed 08/12/18, CT chest without contrast performed 11/11/14 Findings: Visualized portions of the inferior thyroid gland appear unremarkable. The mediastinal and hilar vascular structures appear within normal limits. The heart appears within normal limits of size. No large central or segmental pulmonary embolus evident. Focal nodular opacity may represent scarring/ atelectasis/ infiltrate. No pleural effusion. No pneumothorax. Punctate calcified granuloma, right upper lobe. Small hiatal hernia/ distal esophageal wall thickening. Limited visualized portions of the upper abdomen: Cholecystectomy. Degenerative changes. Kyphosis. Osseous demineralization. Impression: No large central or segmental pulmonary embolus evident. Focal nodular opacity may represent scarring/ atelectasis/ infiltrate. Additional findings as above.
[2018-08-12 13:49] VITALS: BP 146/76; PULSE 73; TEMP 97.9
[2018-08-12 15:12] VITALS: O2SAT 97
== END 2018-08-12 13:49 | disposition home or self-care (01) ==
LOC: C.ER 08:31
DX: M54.9 Dorsalgia, unspecified (principal); E78.00 Pure hypercholesterolemia, unspecified; I10 Essential (primary) hypertension
CPT/HCPCS: 71046; 71275; 80053; 81001; 85025; 85378; 85610; 85730; 96374; 99285; J1885; Q9967